=== PATIENT | male | born 1935 | race Caucasian/White ===

== ENCOUNTER 2023-06-05 01:40 | Outpatient (CLI) | payer MEDICARE, SELFPAY | END 2023-06-05 01:41 | disposition home or self-care (01) | LOC: AMB 06-12 02:59 | PROVIDERS: Visit Provider Family Medicine | DX: S06.5XAS Traumatic subdural hemorrhage with loss of consciousness status unknown, sequela (principal) | CPT/HCPCS: A0425; A0427 ==